=== PATIENT | female | born 1990 | race Caucasian/White ===

== ENCOUNTER 2021-09-04 00:06 | Emergency (ER) | payer MEDICARE ==
[2021-09-04 00:58] LABS: HEMOGLOBIN 12.1 gm/dl (12.3-15.3); RED BLOOD COUNT 4.64 M/UL (4.00-5.10); WHITE BLOOD COUNT 10.7 K/UL (4.5-11.0)
[2021-09-04 01:37] LABS: BUN/CREATININE RATIO 10 (0-10)
== END 2021-09-04 04:37 | disposition home or self-care (01) ==
LOC: ER1 00:06
PROVIDERS: Emergency Medicine
DX: R07.9 Chest pain, unspecified (principal); Z88.0 Allergy status to penicillin; Z20.822 Contact with and (suspected) exposure to COVID-19
CPT/HCPCS: 71045; 80053; 82550; 82553; 83690; 83874; 84484; 84703; 85025; 93005; 99285; U0002

== ENCOUNTER → 2021-09-19 | Outpatient (CLI) | payer OTHER | LOC: HEART CORB 09:55 | DX: R07.2 Precordial pain (principal); R42 Dizziness and giddiness; R06.02 Shortness of breath; I08.3 Combined rheumatic disorders of mitral, aortic and tricuspid valves | CPT/HCPCS: 93306 ==

== ENCOUNTER → 2021-09-20 | Outpatient (CLI) | payer OTHER | LOC: CT 14:20 | DX: Q23.1 Congenital insufficiency of aortic valve (principal) | CPT/HCPCS: 71275; Q9967 ==